=== PATIENT | male | born 1955 | race African-American/Black ===

== ENCOUNTER 2016-07-29 17:48 | Emergency (ER) | payer MEDICARE, MEDICAID ==
[~2016-07-29] VITALS: Ht 177.8 cm; Wt 80.0 kg
[~2016-07-29 17:48] MED LIST: ATOR20TA42 PO; CLON.2 PO; COLC1TAB7 PO; FURO1TAB93 PO; HYDR10FO PR; ISOS20TA2; LISI-591; METH750T2 PO; NORV2.5T11 PO; POTA-243; TOPR50TA; TRAM50 PO; ZOVI800T13
[2016-07-29 17:52] VITALS: BP 134/77; PULSE 80; RESP 16; TEMP 98.7; O2SAT 93
--- NOTE | 2016-07-29 18:01 | PD ---
Physical Exam Time Seen by Provider: 17:58 Narrative 61yo M sent by [facility] for late tertiary syphilis. Referred to [place] [facility]. Subjective fever. Denies vomiting. Patient stable. Patient seen in triage. Awaiting bed placement. Data Data Last Documented VS Vital Signs Date Time Temp Pulse Resp B/P Pulse Ox O2 Delivery O2 Flow Rate FiO2 07/29/16 17:52 98.7 80 16 134/77 93 MDM Supervised Visit with ISMAEL: Ami Isidro Jul 29, 2016 18:01
[2016-07-29] MEDS ORDERED: FURO1TAB60 PO (19:59)
[2016-07-29] MEDS ORDERED: ATOR20TA15 PO (19:59)
[2016-07-29] MEDS ORDERED: NORV2.5T PO (19:59)
[2016-07-29] MEDS ORDERED: CLON0.2T PO (19:59)
[2016-07-29] MEDS ORDERED: METO50TA11 PO (19:59)
[2016-07-29] MEDS ORDERED: ISOS20TA2 PO (19:59)
[2016-07-29] MEDS ORDERED: PENICILLIN G BENZATHINE 2,400,000 UNITS/4 ML SYRINGE IM ONE (20:15)
[2016-07-29] MEDS ORDERED: DOXYCYCLINE HYCLATE 100 MG CAP PO ONE (20:30)
[2016-07-29] MEDS ORDERED: VIBR100C PO (20:39)
--- NOTE | 2016-07-29 20:41 | PD ---
HPI Chief Complaint: Medical Clearance Time Seen by Provider: 20:31 Travel History International Travel<30 days: No Contact w/Intl Traveler<30days: No Traveled to known affect area: No History of Present Illness HPI Patient is a 61-year-old male presenting to the emergency department on the advice of the [facility] to be evaluated for late tertiary syphilis. Patient reports seeing a wound on his leg, he is concerned that this is syphilis. He has no other physical complaints at this time. He reports a past medical history significant for syphilis 40 years ago, congestive heart failure, asthma, hypertension. [facility] Past Medical History Narrative Medical Syphilis Cardiac Catheterization: Yes Cardiovascular Problems: Yes High Cholesterol: Yes Congestive Heart Failure: Yes Coronary Artery Disease: Yes Diminished Hearing: No Hypertension: Yes Reproductive: Yes (HERPES) Respiratory: Yes (BRONCHITIS, SINISITIS) Tetanus Vaccination: > 5 Years Past Surgical History Appendectomy: Yes Social History Alcohol Use: No Tobacco Use: Yes (RARELY STS 2-3 CIGARETTES/MONTH) Substance Use: No Allergies-Medications (Allergen,Severity, Reaction): Uncoded Allergies: GENERIC MEDS (Allergy, Unknown, 03/01/15) Reported Meds & Prescriptions Reported Meds & Active Scripts Active Reported Norvasc (Amlodipine Besylate) 2.5 Mg Tab 2.5 Mg PO DAILY Metoprolol Succinate ER 24 HR (Metoprolol Succinate) 50 Mg Tab 50 Mg PO DAILY Isosorbide Dinitrate 20 Mg Tab 20 Mg PO TID Lasix (Furosemide) 40 Mg Tab 40 Mg PO DAILY Clonidine (Clonidine HCl) 0.2 Mg Tab 0.2 Mg PO BID Atorvastatin (Atorvastatin Calcium) 20 Mg Tab 20 Mg PO HS Review of Systems Except as stated in HPI: all other systems reviewed are Neg Skin: Positive Lesions Physical Exam Narrative GENERAL: Well-developed, well-nourished, alert male. Resting comfortably in no acute distress. SKIN: Focused skin assessment warm/dry. No rash or obvious lesions noted. Patient has enlarged hair follicle on his right thigh. No erythema or induration noted. HEAD: Atraumatic. Normocephalic. EYES: Pupils equal and round. No scleral icterus. No injection or drainage. ENT: No nasal bleeding or discharge. Mucous membranes pink and moist. NECK: Trachea midline. No JVD. CARDIOVASCULAR: Regular rate and rhythm. No murmur appreciated. RESPIRATORY: No accessory muscle use. Clear to auscultation. Breath sounds equal bilaterally. GASTROINTESTINAL: Abdomen soft, non-tender, nondistended. Hepatic and splenic margins not palpable. MUSCULOSKELETAL: No obvious deformities. No clubbing. No cyanosis. No edema. NEUROLOGICAL: Awake and alert. No obvious cranial nerve deficits. Motor grossly within normal limits. Normal speech. PSYCHIATRIC: Appropriate mood and affect; insight and judgment normal. Data Data Last Documented VS Vital Signs Date Time Temp Pulse Resp B/P Pulse Ox O2 Delivery O2 Flow Rate FiO2 07/29/16 17:52 98.7 80 16 134/77 93 Orders Penicillin G Benzathine Inj (Bicillin L- (07/29/16 20:15) Doxycycline (Vibramycin) (07/29/16 20:30) [facility] Medical Decision Making Medical Screen Exam Complete: Yes Emergency Medical Condition: Yes Interpretation(s) Vital Signs Date Time Temp Pulse Resp B/P Pulse Ox O2 Delivery O2 Flow Rate FiO2 07/29/16 17:52 98.7 80 16 134/77 93 Differential Diagnosis Late tertiary syphilis versus previous exposure versus cellulitis versus abscess Narrative Course Patient is a 60-year-old male presenting to the emergency room for evaluation of the tertiary syphilis, he was referred by the [facility] to [place] infectious disease. Patient presented to the emergency department, he has no other complaints other than a spot on his right thigh which he believes to be an ulcer or canker from syphilis. On exam it is more consistent with an enlarged hair follicle. Patient's vital signs are stable, he 'll be treated with doxycycline, the first dose was given now. Patient be provided with a prescription to complete full course of therapy. He will be given a mandatory referral to infectious disease for further evaluation management. Patient verbalized understanding of instructions. Patient stable for discharge. Discussed treatment plan with attending physician. Diagnosis Primary Impression: Late tertiary syphilis Referrals: Infectious Disease Specialist 2 days Patient Instructions: General Instructions, Syphilis (ED) Additional Instructions: Follow-up with infectious disease Complete full course of antibiotics as directed Return to the Emergency department for any new or worsening symptoms Med/Other Pt SpecificInfo: Prescription(s) given Scripts Doxycycline Hyclate (Vibramycin)100 Mg [id number] Mg PO BID 28 Days Ref 0 Prov:Naheed Iverson 07/29/16 Disposition: 01 DISCHARGE HOME Condition: Stable Naheed Iverson Jul 29, 2016 20:41
== END 2016-07-29 21:04 | disposition home or self-care (01) ==
LOC: NEPD 17:48
DX: A52.79 Other symptomatic late syphilis (principal); I10 Essential (primary) hypertension; E78.00 Pure hypercholesterolemia, unspecified; Z72.0 Tobacco use; Z86.79 Personal history of other diseases of the circulatory system; Z87.09 Personal history of other diseases of the respiratory system
CPT/HCPCS: 99283

== ENCOUNTER 2017-05-09 20:58 | Emergency (ER) | payer MEDICARE, MEDICAID ==
[~2017-05-09] VITALS: Ht 180.3 cm; Wt 90.0 kg
[~2017-05-09 20:58] MED LIST changes: +ATOR20TA15 PO; -ATOR20TA42 PO; -CLON.2 PO; +CLON0.2T PO; -COLC1TAB7 PO; +FURO1TAB60 PO; -FURO1TAB93 PO; -HYDR10FO PR; -ISOS20TA2; +ISOS20TA2 PO; -LISI-591; -METH750T2 PO; +METO1TAB9 PO; +NORV2.5T PO; -NORV2.5T11 PO; -POTA-243; -TOPR50TA; -TRAM50 PO; +VIBR100C PO; -ZOVI800T13
[2017-05-09 21:01] VITALS: BP 138/70; PULSE 18; PULSE 82; RESP 16; TEMP 98.6; O2SAT 96
[2017-05-09] MEDS ORDERED: MOME17I EACH NARE (21:29)
--- NOTE | 2017-05-09 21:33 | PD ---
HPI Chief Complaint: Cold / Flu Symptoms Time Seen by Provider: 21:22 Travel History International Travel<30 days: No Contact w/Intl Traveler<30days: No Traveled to known affect area: No History of Present Illness HPI 62-year-old black male presents to emergency department stating that he's been sick for the past 5 days with runny nose, cough, congestion and general malaise. He states that he cannot breathe through his nose. He like to get something so he can breathe through his nose. He denies any shortness of breath , sputum production, fever, chills, nausea, vomiting, abdominal pain or diarrhea. No dysuria. He does complain of decreased flow and has had problems with prostate cancer and BPH. PFSH Past Medical History Cardiac Catheterization: Yes Cardiovascular Problems: Yes ("CHF") High Cholesterol: Yes Congestive Heart Failure: Yes Coronary Artery Disease: Yes Diminished Hearing: No Hypertension: Yes Reproductive: Yes (HERPES) Respiratory: Yes (BRONCHITIS, SINISITIS) Past Surgical History Appendectomy: Yes Social History Alcohol Use: Yes ("VERY LITTLE") Tobacco Use: Yes ("A CIGAR EVERY NOW AND THEN") Substance Use: No Allergies-Medications (Allergen,Severity, Reaction): Coded Allergies: No Known Allergies (Unverified , 05/09/17) Reported Meds & Prescriptions Reported Meds & Active Scripts Active Nasonex Nasal [place] (Mometasone Furoate) 50 Mcg/Act Naspr 2 [place] EACH NARE DAILY Vibramycin (Doxycycline Hyclate) 100 Mg Cap 100 Mg PO BID 28 Days Reported Norvasc (Amlodipine Besylate) 2.5 Mg Tab 2.5 Mg PO DAILY Metoprolol Succinate ER 24 HR (Metoprolol Succinate) 50 Mg Tab 50 Mg PO DAILY Isosorbide Dinitrate 20 Mg Tab 20 Mg PO TID Lasix (Furosemide) 40 Mg Tab 40 Mg PO DAILY Clonidine (Clonidine HCl) 0.2 Mg Tab 0.2 Mg PO BID Atorvastatin (Atorvastatin Calcium) 20 Mg Tab 20 Mg PO HS Review of Systems Except as stated in HPI: all other systems reviewed are Neg Physical Exam Narrative GENERAL: Well-developed, well-nourished in no acute distress. Nontoxic appearing. HEAD: Normocephalic, atraumatic. EYES: Pupils equal round and reactive. Extraocular motions intact. No scleral icterus. No injection or drainage. ENT: TMs clear without erythema. The external auditory canals clear. Nose: clear nasal discharge. Posterior pharynx is pink and moist. No tonsillar edema or exudate. Uvula midline. Airway patent. NECK: Trachea midline.Supple, nontender, moves head freely. No central bony tenderness or spasm. CARDIOVASCULAR: Regular rate and rhythm without murmurs, gallops, or rubs. RESPIRATORY: Clear to auscultation. Breath sounds equal bilaterally. No wheezes , rales, or rhonchi. GASTROINTESTINAL: Abdomen soft, non-tender, nondistended. No hepato-splenomegaly , or palpable masses. No guarding. EXTREMITIES: No clubbing, cyanosis, or edema. No joint tenderness, effusion, or edema noted. BACK: Nontender without deformity or crepitance. No flank tenderness. Data Data Last Documented VS Vital Signs Date Time Temp Pulse Resp B/P (MAP) Pulse Ox O2 Delivery O2 Flow Rate FiO2 05/09/17 21:01 98.6 82 16 138/70 (92) 96 Room Air Orders Orders Ed Discharge Order (05/09/17 21:28) MDM Medical Decision Making Medical Screen Exam Complete: Yes Emergency Medical Condition: Yes Medical Record Reviewed: Yes Differential Diagnosis MDM: High Differential diagnoses: Pneumonia, bronchitis, URI, asthma, RAD, legionnaire's disease, SARS, ARDS, influenza, bronchiolitis, RSV,PE,CHF Narrative Course Patient has a viral upper respiratory tract symptoms. I explained to him due to his BPH antihistamine decongestants are contraindicated. We will try a course of nasal steroids. Patient is advised to follow-up with his doctor in the next few days for recheck. This is URI Diagnosis Primary Impression: URI, acute Patient Instructions: General Instructions Additional Instructions: Rest. Nasonex. Cool steam Humidifier Follow-up with your doctor in the next 3-5 days. Return to the ER for any problems. Med/Other Pt SpecificInfo: Prescription(s) given Scripts Mometasone Nasal [place] (Nasonex Nasal [place]) 50 Mcg/Act Naspr 2 SPRAY EACH NARE DAILY for Allergy Management, #1 BOTTLE 0 Refills Prov: Salud Sewell MD 05/09/17 Disposition: 01 DISCHARGE HOME Condition: Stable Adonay Albarado May 09, 2017 21:33
[2017-05-10] MEDS ORDERED: AMOX400S3 PO (14:58)
== END 2017-05-09 21:49 | disposition home or self-care (01) ==
LOC: NEPD 20:58
DX: J06.9 Acute upper respiratory infection, unspecified (principal); N40.0 Benign prostatic hyperplasia without lower urinary tract symptoms; I11.0 Hypertensive heart disease with heart failure; I50.9 Heart failure, unspecified; E78.00 Pure hypercholesterolemia, unspecified; I25.10 Atherosclerotic heart disease of native coronary artery without angina pectoris
CPT/HCPCS: 99283

== ENCOUNTER 2017-05-10 14:37 | Emergency (ER) | payer MEDICARE, MEDICAID ==
[~2017-05-10] VITALS: Ht 180.3 cm; Wt 90.5 kg
[~2017-05-10 14:37] MED LIST changes: +MOME17I EACH NARE
[2017-05-10 14:39] VITALS: BP 87/48; PULSE 77; RESP 18; TEMP 98.3; O2SAT 98
[2017-05-10 14:55] VITALS: BP 100/56; PULSE 72; RESP 19; O2SAT 100
[2017-05-10] MEDS ORDERED: AMOX400S3 PO (14:58)
--- NOTE | 2017-05-10 14:58 | PD ---
HPI Chief Complaint: Medication Refill Request Time Seen by Provider: 14:49 Travel History International Travel<30 days: No Contact w/Intl Traveler<30days: No Traveled to known affect area: No History of Present Illness HPI 62-year-old male with history of upper respiratory infection, diagnosed yesterday, presents to the emergency department requesting amoxicillin. Patient states that he took one of his 's amoxicillin that she was prescribed for an otitis media. He took this last evening and he swears that he feels much better this morning. He would like a prescription for this. Denies any other acute medically for this time. PFSH Past Medical History Cardiac Catheterization: Yes Cardiovascular Problems: Yes High Cholesterol: Yes Congestive Heart Failure: Yes Coronary Artery Disease: Yes Diminished Hearing: No Hypertension: Yes Reproductive: Yes (HERPES) Respiratory: Yes (BRONCHITIS, SINISITIS) Past Surgical History Appendectomy: Yes Social History Alcohol Use: Yes ("VERY LITTLE") Tobacco Use: Yes ("A CIGAR EVERY NOW AND THEN") Substance Use: No Allergies-Medications (Allergen,Severity, Reaction): Coded Allergies: No Known Allergies (Unverified , 05/10/17) Reported Meds & Prescriptions Reported Meds & Active Scripts Active Amoxicillin Liq (Amoxicillin) 400 Mg/5 Ml Susp 800 Mg PO BID 10 Days Nasonex Nasal [place] (Mometasone Furoate) 50 Mcg/Act Naspr 2 [place] EACH NARE DAILY Reported Norvasc (Amlodipine Besylate) 2.5 Mg Tab 2.5 Mg PO DAILY Metoprolol Succinate ER 24 HR (Metoprolol Succinate) 50 Mg Tab 50 Mg PO DAILY Isosorbide Dinitrate 20 Mg Tab 20 Mg PO TID Lasix (Furosemide) 40 Mg Tab 40 Mg PO DAILY Clonidine (Clonidine HCl) 0.2 Mg Tab 0.2 Mg PO BID Atorvastatin (Atorvastatin Calcium) 20 Mg Tab 20 Mg PO HS Review of Systems Except as stated in HPI: all other systems reviewed are Neg Physical Exam Narrative GENERAL: Well-nourished, well-developed male patient in no acute distress. SKIN: Focused skin assessment warm/dry. HEAD: Normocephalic. EYES: No scleral icterus. No injection or drainage. NECK: Supple, trachea midline. No JVD or lymphadenopathy. CARDIOVASCULAR: Regular rate and rhythm without murmurs, gallops, or rubs. RESPIRATORY: Breath sounds equal bilaterally. No accessory muscle use. GASTROINTESTINAL: Abdomen soft, non-tender, nondistended. MUSCULOSKELETAL: No cyanosis, or edema. BACK: Nontender without obvious deformity. No CVA tenderness. Data Data Last Documented VS Vital Signs Date Time Temp Pulse Resp B/P (MAP) Pulse Ox O2 Delivery O2 Flow Rate FiO2 05/10/17 15:17 05/10/17 14:55 72 19 100 Room Air 05/10/17 14:39 98.3 Orders Orders Ed Discharge Order (05/10/17 14:55) MDM Medical Decision Making Medical Screen Exam Complete: Yes Emergency Medical Condition: Yes Medical Record Reviewed: Yes Differential Diagnosis Medication refill versus URI viral versus bacterial versus normal exam Narrative Course 62-year-old male presents to emergency department requesting amoxicillin area patient appears without distress. He is diagnosed with upper respiratory infection yesterday. His was also seen and evaluated in the emergency department and given amoxicillin for an otitis media. I have explained the patient that this is not the best mode of treatment. He verbalizes understanding and tells me that he will take his 's medication because it is making him feel better. I discussed the patient my attending physician and we feel to best help with medication compliance for the , a prescription for amoxicillin will be given to the patient. Diagnosis Primary Impression: URI, acute Referrals: Primary Care Physician Patient Instructions: General Instructions, Upper Respiratory Infection (ED) Additional Instructions: Humidified air may help to alleviate symptoms Follow up with your primary care provider Return to the ED with acute worsening of symptoms Med/Other Pt SpecificInfo: Prescription(s) given Scripts Amoxicillin Liq (Amoxicillin Liq) 400 Mg/5 Ml Susp 800 MG PO BID for Infection for 10 Days, #200 ML 0 Refills Prov: AneudyTracy CRUZ 05/10/17 Disposition: 01 DISCHARGE HOME Condition: Stable Tracy Amado May 10, 2017 14:58
== END 2017-05-10 15:27 | disposition home or self-care (01) ==
LOC: NEPD 14:37
DX: J06.9 Acute upper respiratory infection, unspecified (principal); E78.00 Pure hypercholesterolemia, unspecified; I50.9 Heart failure, unspecified; I25.10 Atherosclerotic heart disease of native coronary artery without angina pectoris
CPT/HCPCS: 99283